=== PATIENT | male | born 1975 | race Caucasian/White ===

== ENCOUNTER 2024-04-04 15:02 | Outpatient (REF) | payer OTHER, SELFPAY | END 2024-04-04 15:03 | disposition home or self-care (01) | LOC: LBN 15:02 | PROVIDERS: PCP Physical Therapist; Visit Provider Podiatrist | DX: L60.0 Ingrowing nail (principal); L97.529 Non-pressure chronic ulcer of other part of left foot with unspecified severity | CPT/HCPCS: 87077; 87070; 87075; 87186; 87205 ==